=== PATIENT | male | born 1975 | race Caucasian/White ===

== ENCOUNTER 2016-12-15 23:11 | Emergency (ER) | payer BC ==
[~2016-12-15] VITALS: Ht 182.9 cm; Wt 90.5 kg
[~2016-12-15 23:11] MED LIST: ALPRAZOLAM2 MG PO; AMBIEN10 MG PO; CATAPRES0.1 MG PO; DIVALPROEX SOD250 M1 PO; DIVALPROEX SOD500 M1 PO; NAPROXEN500 MG PO; NOHOMEMEDS; OPANA ER15 MG PO; OXYCODONE HCL30 MG PO; OXYMORPHONE HCL15 MG PO; QUETIAPINE FUM200 MG PO; QUETIAPINE FUM300 MG PO; SOMA350 MG PO; XANAX2 MG PO
[2016-12-15 23:36] VITALS: BP 144/106
== END 2016-12-15 23:37 | disposition left against medical advice (07) ==
LOC: EME 23:11
DX: T42.4X1A Poisoning by benzodiazepines, accidental (unintentional), initial encounter (principal); F17.200 Nicotine dependence, unspecified, uncomplicated
CPT/HCPCS: 99281; 99283